=== PATIENT | female | born 1990 | race African-American/Black ===

== ENCOUNTER 2019-10-22 08:54 | Outpatient (CLI) | payer MEDICAID, OTHER ==
[~2019-10-22 08:54] MED LIST: FERRIC CARBOXYMALTOSE 750 MG in NORMAL SALINE 250 ML IV PRN; NORMAL SALINE 250 ML IV PRN
[2019-10-22 09:36] VITALS: BP 139/73
== END 2019-10-22 10:30 | disposition home or self-care (01) ==
LOC: II 08:54 → 5TH 08:59 → II 10:30
PROVIDERS: ATTEND Advanced Practice Midwife
DX: O99.019 Anemia complicating pregnancy, unspecified trimester (principal)
CPT/HCPCS: 96365; J7050; J1439

== ENCOUNTER 2019-10-29 08:53 | Outpatient (CLI) | payer MEDICAID, OTHER ==
[2019-10-29 10:26] VITALS: BP 151/92
== END 2019-10-29 09:41 | disposition home or self-care (01) ==
LOC: II 08:53 → 5TH 09:08 → II 09:41
PROVIDERS: ATTEND Advanced Practice Midwife
DX: O99.019 Anemia complicating pregnancy, unspecified trimester (principal)
CPT/HCPCS: 96365; J7050; J1439

== ENCOUNTER 2019-11-18 02:25 | Inpatient (IN) | payer OTHER ==
[2019-11-18] MEDS ORDERED: RINGERS SOLUTION,LACTATED 1,000 ML IV PRN (02:47)
[2019-11-18] MEDS ORDERED: RINGERS SOLUTION,LACTATED 1,000 ML IV ONE (02:47)
[2019-11-18] MEDS ORDERED: MAGNESIUM SULFATE 20 GM/500 ML RTUINJ IV ONE ×2 (03:11→14:22)
[2019-11-18] MEDS ORDERED: MAGNESIUM SULFATE 4 GM/100 ML RTUPB IV ONE (03:11)
[2019-11-18] MEDS ORDERED: BETAMET ACET/BETAMET NA INJ 6 MG/1 ML ONE (03:11)
[2019-11-18 03:21] LABS: APPEARANCE,URINE CLOUDY; BILIRUBIN,URINE NEGATIVE (NEGATIVE); COLOR,URINE PINK; GLUCOSE, URINE NEGATIVE (NEGATIVE); KETONES,URINE NEGATIVE (NEGATIVE); LEUKOCYTE ESTERASE,URINE SMALL (NEGATIVE); NITRITE,URINE NEGATIVE (NEGATIVE); PROTEIN,URINE 100 mg/dL (NEGATIVE); URINE SPECIFIC GRAVITY 1.009; UROBILINOGEN,URINE NEGATIVE mg/dL (<2.0)
[2019-11-18 03:31] LABS: URINE AMPHETAMINES SCREEN NEGATIVE; URINE BARBITURATES SCREEN NEGATIVE; URINE BENZODIAZEPINES SCREEN NEGATIVE; URINE COCAINE SCREEN NEGATIVE; URINE MARIJUANA (THC) SCREEN NEGATIVE; URINE METHADONE SCREEN NEGATIVE; URINE PHENCYCLIDINE SCREEN NEGATIVE
[2019-11-18 03:36] LABS: ABSOLUTE LYMPHOCYTES (AUTO) 1.5 10^3/uL (0.5-4.7); ABSOLUTE MONOCYTES (AUTO) 0.4 10^3/uL (0.1-1.4); ABSOLUTE NEUT (AUTO) 2.7 10^3/uL (1.7-8.2); BASOPHILS % (AUTO) 0.1 % (0-2); EOSINOPHILS % (AUTO) 0.7 % (0-6); HEMATOCRIT 35.4 % (36.0-47.0); HEMOGLOBIN 11.3 g/dL (12.0-15.5); LYMPHOCYTES % (AUTO) 31.5 % (13-45); MEAN CORPUSCULAR HEMOGLOBIN 24.5 pg (27.0-33.4); MEAN CORPUSCULAR VOLUME 77 fl (80-97); PLATELET COUNT 125 10^3/uL (150-450); RED BLOOD COUNT 4.63 10^6/uL (3.72-5.28); RED CELL DISTRIBUTION WIDTH 39.2 % (11.5-14.0); SEGMENTED NEUTROPHILS % (AUTO) 58.7 % (42-78); TOTAL CELLS COUNTED % (AUTO) 100 %; WHITE BLOOD COUNT 4.7 10^3/uL (4.0-10.5)
[2019-11-18 03:38] LABS: ANISOCYTOSIS 3+; POIKILOCYTOSIS 3+; TOXIC GRANULATION 1+
[2019-11-18 03:39] LABS: BURR CELLS 2+; OVALOCYTES 3+; PLATELET COMMENT ADEQUATE; SCHISTOCYTES 2+; TEAR DROP CELLS 2+
[2019-11-18] MEDS ORDERED: BETAMET ACET/BETAMET NA INJ 6 MG/1 ML IM ONE (03:41)
[2019-11-18] MEDS ORDERED: PENICILLIN G POTASSIUM 5,000,000 UNIT in DEXTROSE 5%-WATER 100 ML IV ONE (04:51)
[2019-11-18] MEDS ORDERED: PENICILLIN G-K 5 MILLION UNIT VIAL ONE ×5 (04:55→22:18)
--- NOTE | 2019-11-18 05:03 | Admission Physical ---
Datetime Report Generated by CPN: 11/18/2019 05:03 CURRENT ADMISSION Chief Complaint: Suspected Ruptured Membranes Indication for Induction: Not Applicable Admit Impression : , Intrauterine ; No Active Labor Admit Impression- Other: di/di twin gestation Admit Plan: Admit to Unit; Initiate Labor Protocol Admit Plan- Other: previous c/section, planned c/section delivery for twins. ALLERGIES Medication Allergies: No Medication Allergies: No Known Allergies (11/18/2019) Latex: No Latex Allergies OBSTETRICAL HISTORY EDC: 12/26/2019 00:00 : 4 Para: 1 Term: 1 : 0 SAB: 0 IAB: 2 Ectopic: 0 Livin Cesareans: 1 VBACs: 0 Multiple Births: 0 Gestational Diabetes: No Rh Sensitization: No Incompetent Cervix: No DARREN: No Infertility: No ART Treatment: No Uterine Anomaly: No IUGR: No Hx Previous C/S: Yes Macrosomia: No Hx Loss/Stillborn: No PIH: No Hx : No Placenta Previa/Abruption: No Depression/PP Depression: No PTL/PROM: No Post Hemorrhage: No Current Procedures: Ultrasound; NST Obstetrical History Comments: G1 2008 IAB G2 2011 IAB G3 2013 failed IOL c/s G4 2019 Current Twins di/di SEE RECORDS Alcohol: No Marijuana : No Cocaine: No Other Illicit Drugs: No Cigarettes: Never Smoker. [id number] MEDICAL HISTORY Diabetes: No Blood Transfusion: No Pulmonary Disease (Asthma, TB): No Breast Disease: No Hypertension: No Start Up Specialist Surgery: No Heart Disease: No Hosp/Surgery: Yes Autoimmune Disorder: No Anesthetic Complications: No Kidney Disease: No Abnormal Pap Smear: No Neuro/Epilepsy: No Psychiatric Disorders: No Other Medical Diseases: No Hepatitis/Liver Disease: No Significant Family History: No Varicosities/Phlebitis: No Trauma/Violence : No Thyroid Dysfunction: No INFECTIOUS HISTORY Gonorrhea: No Genital Herpes: No Chlamydia: No Tuberculosis: No Syphilis: No Hepatitis: No HIV/AIDS Exposure: No Rash or Viral Illness: No HPV: No PHYSICAL EXAM General: Normal HEENT: Normal Neurologic: Normal Thyroid: Normal Heart: Normal Lungs: Normal Breast: Normal Back: Normal Abdomen: Normal Genitourinary Exam: Normal Extremities: Normal DTRs: Normal Pelvic Type: Adequate Vital Signs: Reviewed; Within Normal Limits VAGINAL EXAM Dilatation: 1 Effacement: 50 Station: -3 MEMBRANES Pooling: Positive Membranes: Ruptured Amniotic Fluid Color: Clear FETUS A EGA: 34.4 Monitoring: External US FHR- Baseline: 150 Variability: Moderate 6-25bpm Accelerations: 15X15 Decelerations: None FHR Category: Category I Estimated Weight (gm): 2600 Admit Comment: ACS protocol with magnesium sulfate for neuroprotection initiated. will tocolysis if possible until 24 hours after second dose of ACS and then proceed with repeat c/section. FETUS B Monitoring: External US Variability: Moderate 6-25bpm Accelerations: 15X15 Decelerations: None FHR Category: Category I Estimated Weight (gm): 2500 PLANS FOR LABOR AND DELIVERY Labor and Delivery: None Pain Management: Spinal Feeding Preference: Breast Benefit of Breast Feed Discussed: Yes Circumcision: N/A INFORMED CONSENT Signature: with User ID: [email or web address]
--- NOTE | 2019-11-18 08:46 | L&D Progress Notes ---
PROGRESS NOTES Datetime Report Generated by CPN: 11/18/2019 08:46 PROGRESS NOTE Impression: Reassuring Heart Rate; Premature Rupture of Membranes Plan: Continue Present Management; Tocolysis Vital Signs : Reviewed Comment: Assuming care of patient. Doing well this morning, states feels occassional contraction, but no distress. at 34.4 wks with twins, Previous cesarea section. Now on Magnessium Sulfate infusing, PCN q 4 hours. Betamethasone x 1 dose given. Attending MD today is Dr Parmar, agrees with plan of care. VAGINAL EXAM Dilatation: 1 Effacement: 50 Station: -3 LAST VAGINAL EXAM-NURSING Nursing Exam Dilitation: 1.0 Nursing Exam Effacement: thick Nursing Exam Station: high MEMBRANES Pooling: Positive Membranes: Ruptured Amniotic Fluid Color: Clear FETUS A FHR - Baseline: 130 Monitoring: External US Variability: Moderate 6-25bpm Accelerations: 15X15 Decelerations: None FHR Category: Category I : 34.4 Estimated Weight (gm): 2600 FETUS B FHR - Baseline: 140 Monitoring: External US Variability: Moderate 6-25bpm Accelerations: 15X15 Decelerations: None FHR Category: Category I Gestational Age by US: 34.4 Estimated Weight (gm): 2500 SIGNATURE SIGNATURE: [id number];[id number];[id number] Assignment: Alverto Parmar MD Signature: with User ID: Tasia : with User ID: Tasia
[2019-11-18] MEDS: PENICILLIN G POTASSIUM 2,500,000 UNIT in DEXTROSE 5%-WATER 50 ML IV SCH ×4 (10:15→22:27)
[2019-11-18 10:57] LABS: ABSOLUTE LYMPHOCYTES (AUTO) 0.5 10^3/uL (0.5-4.7); ABSOLUTE MONOCYTES (AUTO) 0.1 10^3/uL (0.1-1.4); ABSOLUTE NEUT (AUTO) 6.1 10^3/uL (1.7-8.2); BASOPHILS % (AUTO) 0.2 % (0-2); HEMATOCRIT 36.9 % (36.0-47.0); HEMOGLOBIN 11.9 g/dL (12.0-15.5); LYMPHOCYTES % (AUTO) 7.9 % (13-45); MEAN CORPUSCULAR HGB CONC 32.3 g/dL (32.0-36.0); MEAN CORPUSCULAR VOLUME 77 fl (80-97); MONOCYTES % (AUTO) 2.1 % (3-13); RED BLOOD COUNT 4.78 10^6/uL (3.72-5.28); RED CELL DISTRIBUTION WIDTH 39.4 % (11.5-14.0); SEGMENTED NEUTROPHILS % (AUTO) 89.8 % (42-78); TOTAL CELLS COUNTED % (AUTO) 100 %; WHITE BLOOD COUNT 6.8 10^3/uL (4.0-10.5)
[2019-11-18 11:12] LABS: ALBUMIN 3.6 g/dL (3.5-5.0); ALKALINE PHOSPHATASE 177 U/L (38-126); ANION GAP 9 (5-19); ASPARTATE AMINO TRANSFERASE 49 U/L (14-36); BILIRUBIN,TOTAL 0.5 mg/dL (0.2-1.3); BLOOD UREA NITROGEN 7 mg/dL (7-20); CALCIUM 8.5 mg/dL (8.4-10.2); CARBON DIOXIDE 20 mmol/L (22-30); CHLORIDE 105 mmol/L (98-107); GLUCOSE 92 mg/dL (75-110); POTASSIUM 4.4 mmol/L (3.6-5.0); TOTAL PROTEIN 6.9 g/dL (6.3-8.2); URIC ACID 5.1 mg/dL (2.5-6.2)
[2019-11-18 11:34] LABS: POLYCHROMASIA SLIGHT
[2019-11-18 11:35] LABS: ANISOCYTOSIS 4+; BURR CELLS SLIGHT; OVALOCYTES 1+; PLATELET CLUMPS PRESENT; PLATELET COMMENT DECREASED; PLATELET COUNT 132 10^3/uL (150-450); POIKILOCYTOSIS 2+; TEAR DROP CELLS 2+
[2019-11-18 12:05] LABS: URINE CREATININE 15.4 mg/dL (16-327)
[2019-11-18 12:16] LABS: URINE PROTEIN 323.2 mg/dL (<12)
--- NOTE | 2019-11-18 13:22 | L&D Progress Notes ---
PROGRESS NOTES Datetime Report Generated by CPN: 11/18/2019 13:22 PROGRESS NOTE Impression: Reassuring Heart Rate Plan: Continue Present Management; Tocolysis Plan Other: PROM at 0145 on 11/17, PCN q 4 hours, pt on Magnessium Sulfate. Vital Signs : Reviewed Comment: Pt doing well, no complaints of SOB, Epigastric pain or headache. Lungs CTA, HR rrr. Pt states she normally runs a fast HR. Normal O2 sats on room air. CBC and CMP reviewed. LFT's slightly elevated and Platelets remain stable. Will Repeat labwork at 2200. Dr Parmar aware of pts labs and tachycardia. Plan to continue PCN q 4 hours. Will turn off the Magnesium Sulfate at 0330, once second BMZ is given. VAGINAL EXAM Dilatation: 1 Effacement: 50 Station: -3 LAST VAGINAL EXAM-NURSING Nursing Exam Dilitation: 1.0 Nursing Exam Effacement: thick Nursing Exam Station: high MEMBRANES Pooling: Positive Membranes: Ruptured Amniotic Fluid Color: Clear FETUS A FHR - Baseline: 130 Monitoring: External US Variability: Moderate 6-25bpm Accelerations: 15X15 Decelerations: None FHR Category: Category I : 34.4 Estimated Weight (gm): 2600 FETUS B FHR - Baseline: 140 Monitoring: External US Variability: Moderate 6-25bpm Accelerations: 15X15 Decelerations: None FHR Category: Category I Gestational Age by US: 34.4 Estimated Weight (gm): 2500 SIGNATURE SIGNATURE: [id number];[id number] Assignment: Alverto Parmar MD Signature: with User ID: Tasia : with User ID: Tasia
[2019-11-18] MEDS ORDERED: LABETALOL HCL 200 MG TABLET PO ONE (14:16)
[2019-11-18] MEDS ORDERED: LABETALOL HCL 200 MG TABLET ONE ×2 (14:20→22:17)
--- NOTE | 2019-11-18 19:38 | EKG REPORT ---
SEVERITY:- OTHERWISE NORMAL ECG - SINUS TACHYCARDIA : Confirmed by: Carley Sampson 18-Nov-2019 19:37:37
[2019-11-18 22:22] LABS: HEMOGLOBIN 11.2 g/dL (12.0-15.5); MEAN CORPUSCULAR HEMOGLOBIN 24.7 pg (27.0-33.4); MEAN CORPUSCULAR HGB CONC 32.1 g/dL (32.0-36.0); MEAN CORPUSCULAR VOLUME 77 fl (80-97); PLATELET COUNT 148 10^3/uL (150-450); RED BLOOD COUNT 4.55 10^6/uL (3.72-5.28); RED CELL DISTRIBUTION WIDTH 39.5 % (11.5-14.0); WHITE BLOOD COUNT 9.7 10^3/uL (4.0-10.5)
[2019-11-18] MEDS: LABETALOL HCL 200 MG TABLET PO SCH (22:26)
[2019-11-18 22:35] LABS: ALBUMIN 3.3 g/dL (3.5-5.0); ALKALINE PHOSPHATASE 163 U/L (38-126); ANION GAP 9 (5-19); ASPARTATE AMINO TRANSFERASE 46 U/L (14-36); BILIRUBIN,TOTAL 0.5 mg/dL (0.2-1.3); BLOOD UREA NITROGEN 6 mg/dL (7-20); CALCIUM 7.9 mg/dL (8.4-10.2); CARBON DIOXIDE 19 mmol/L (22-30); CHLORIDE 103 mmol/L (98-107); GLUCOSE 121 mg/dL (75-110); POTASSIUM 4.1 mmol/L (3.6-5.0)
[2019-11-19] MEDS ORDERED: MAGNESIUM SULFATE 20 GM/500 ML RTUINJ IV ONE (01:06)
[2019-11-19] MEDS ORDERED: PENICILLIN G-K 5 MILLION UNIT VIAL ONE ×6 (02:27→23:22)
[2019-11-19] MEDS ORDERED: BETAMET ACET/BETAMET NA INJ 6 MG/1 ML ONE (02:28)
[2019-11-19] MEDS: PENICILLIN G POTASSIUM 2,500,000 UNIT in DEXTROSE 5%-WATER 50 ML IV SCH ×6 (02:39→23:34)
[2019-11-19] MEDS ORDERED: BETAMET ACET/BETAMET NA INJ 6 MG/1 ML IM ONE (02:52)
[2019-11-19] MEDS: LABETALOL HCL 200 MG TABLET PO SCH ×2 (11:20→23:36)
[2019-11-19] MEDS ORDERED: LABETALOL HCL 200 MG TABLET ONE ×2 (11:22→23:22)
[2019-11-19 12:05] LABS: CHLAM PCR NOT DETECTED (NOT DETECT)
--- NOTE | 2019-11-19 12:48 | Warning Signs in Babies ---
VOD Warning Signs Datetime Report Generated by [facility]: 11/19/2019 12:48 VOD#608 -Warning Signs in Babies: Viewed with Parent(s)/Family (11/19/2019 12:47:Robert Rosa RN)
[2019-11-20] MEDS ORDERED: PENICILLIN G-K 5 MILLION UNIT VIAL ONE (03:13)
[2019-11-20] MEDS ORDERED: CEFAZOLIN 2 GM/D5W RTU 2 GM/50 ML RTUPB IV ONE (04:27)
[2019-11-20] MEDS ORDERED: CITRIC ACID/SODIUM CITRATE ORAL SOLN 15 ML UDCUP ONE (04:27)
[2019-11-20] MEDS ORDERED: MIDAZOLAM 2 MG/2 ML INJ ONE (04:41)
[2019-11-20] MEDS ORDERED: PHENYLEPHRINE HCL INJ/PF 10 MG/1 ML SDV ONE (04:41)
[2019-11-20] MEDS ORDERED: EPHEDRINE SULFATE INJ 50 MG/1 ML AMPULE ONE (04:41)
[2019-11-20] MEDS ORDERED: OXYTOCIN 10 UNIT/ML VIAL ONE (04:41)
[2019-11-20] MEDS ORDERED: FENTANYL CITRATE INJ/PF 100 MCG/2 ML AMPUL ONE (04:41)
[2019-11-20 04:42] LABS: ABSOLUTE LYMPHOCYTES (AUTO) 1.3 10^3/uL (0.5-4.7); ABSOLUTE MONOCYTES (AUTO) 0.9 10^3/uL (0.1-1.4); ABSOLUTE NEUT (AUTO) 9.7 10^3/uL (1.7-8.2); BASOPHILS % (AUTO) 0.2 % (0-2); EOSINOPHILS % (AUTO) 0.1 % (0-6); HEMATOCRIT 33.7 % (36.0-47.0); HEMOGLOBIN 10.7 g/dL (12.0-15.5); LYMPHOCYTES % (AUTO) 10.9 % (13-45); MEAN CORPUSCULAR HEMOGLOBIN 24.6 pg (27.0-33.4); MEAN CORPUSCULAR HGB CONC 31.9 g/dL (32.0-36.0); MEAN CORPUSCULAR VOLUME 77 fl (80-97); MONOCYTES % (AUTO) 7.7 % (3-13); PLATELET COUNT 139 10^3/uL (150-450); RED BLOOD COUNT 4.37 10^6/uL (3.72-5.28); RED CELL DISTRIBUTION WIDTH 38.5 % (11.5-14.0); SEGMENTED NEUTROPHILS % (AUTO) 81.1 % (42-78); TOTAL CELLS COUNTED % (AUTO) 100 %
[2019-11-20] MEDS ORDERED: ONDANSETRON HCL INJ/PF 4 MG/2 ML SDV ONE (04:42)
[2019-11-20] MEDS ORDERED: ACETAMINOPHEN 1,000 MG/100 ML RTUPB IV ONE (04:42)
[2019-11-20] MEDS ORDERED: METHYLERGONOVINE MALEATE INJ/PF 0.2 MG/1 ML AMPULE ONE (04:42)
[2019-11-20 05:13] LABS: ANISOCYTOSIS 4+; HYPOCHROMASIA SLIGHT; OVALOCYTES SLIGHT; PLATELET COMMENT DECREASED; POIKILOCYTOSIS SLIGHT; POLYCHROMASIA SLIGHT; TEAR DROP CELLS SLIGHT; TOXIC GRANULATION 1+
--- NOTE | 2019-11-20 05:39 | PDOC DELIVERY SUMMARY ---
Delivery Summary - Maternal Risk Factors: Other Ruptured Membranes: AROM Fluids: Clear - Delivery Presentation: Vertex, Breech Uterine Contraction Monitoring: External Pattern: Late Decels Support Person Present: Yes : Emergency Nuchal Cord: No - Medications Type of Anesthesia:: Spinal
[2019-11-20] MEDS ORDERED: OXYTOCIN/0.9 % SODIUM CHLORIDE 30 UNIT/500 ML RTUINJ IV PRN (05:43)
[2019-11-20] MEDS ORDERED: MEASLES,MUMPS&RUBELLA VACC/PF 0.5 ML VIAL SUBCUT PRN (05:43)
[2019-11-20] MEDS ORDERED: SIMETHICONE 80 MG TAB.CHEW PO PRN (05:43)
[2019-11-20] MEDS ORDERED: PROMETHAZINE HCL INJ 25 MG/1 ML VIAL IV PRN ×3 (05:43→05:44)
[2019-11-20] MEDS ORDERED: ACETAMINOPHEN 1,000 MG/100 ML RTUPB IV PRN (05:43)
[2019-11-20] MEDS ORDERED: MORPHINE SULFATE 10 MG/ML INJ IM PRN (05:43)
[2019-11-20] MEDS ORDERED: ACETAMINOPHEN 325 MG TABLET PO PRN (05:43)
[2019-11-20] MEDS ORDERED: DIPH/PERTUSS(ACELL)/TETANUS VAC/PF 0.5 ML SYR (>=10YO) IM PRN (05:43)
[2019-11-20] MEDS ORDERED: RINGERS SOLUTION,LACTATED 1,000 ML IV PRN (05:43)
--- NOTE | 2019-11-20 05:43 | Operative Report ---
Operative Report DATE OF SURGERY: 11/20/19 PREOPERATIVE DIAGNOSIS: IUP 35 and 4 twins rupture membranes nonreassur ing strip breech vertex POSTOPERATIVE DIAGNOSIS: Same OPERATION: Repeat low transverse delivery of viable twin female SURGEON: DANIEL BYRNES ANESTHESIA: Spinal TISSUE REMOVED OR ALTERED: Placenta COMPLICATIONS: None ESTIMATED BLOOD LOSS: 1200 cc PROCEDURE: The patient was taken to the operating room where spinal anesthesia was obtained and found to be adequate. She was then prepped and draped in the normal sterile fashion and placed in the dorsal supine position with a leftward tilt. A Pfannenstiel skin incision was then made and carried through to the underlying layers of the fascia with the scalpel. The fascia was incised in the midline and the incision extended laterally with the Cadet scissors. The superior aspect of the fascial incision was then grasped with Marylu clamps elevated and the underlying rectus muscles dissected off bluntly. Attention was then turned to the inferior aspect of the fascial incision which in a similar fashion was grasped, tented up with Jose clamps, and the rectus muscles dissected off bluntly. The rectus muscles were then in the midline and the peritoneum at the amount identified and entered bluntly. The peritoneal incision was then extended superiorly and inferiorly with good visualization of the bladder. [The bladder blade was inserted and the vesicouterine peritoneum identified grasped with Egyptian pickups and entered sharply with the Metzenbaum scissors. His incision was then extended laterally with the Metzenbaum scissors and a bladder flap created digitally. The bladder blade was then reinserted a nd the lower uterine segment incised in a transverse fashion with the scalpel. The uterine incision was then extended bluntly. The bladder blade was removed and the infant's head was delivered from breech presentation atraumatically. Cord was clamped and infant passed in a table. Second twin was delivered vertex. The cord doubly clamped and cut. And the infant was handed off to waiting pediatricians. The placenta was then delivered manully and the uterus exteriorized and cleared of all clots and debris. The uterine incision was then repaired with 1-0 Vicryl in a running locked fashion. A second layer of the same suture was used to obtain hemostasis via imbrication of the initial layer. The uterus was returned to the patient's abdomen. The gutters were cleared of all clots and debris. All operative sites were noted to be hemostatic. The fascia was reapproximated with 0 Vicryl in a running fashion from each lateral edge to the midline. The patient tolerated the procedure well. Sponge lap needle and instrument counts are correct -2. 2 g of Ancef were given prior to skin incision. The patient was taken to the recovery area awake and in stable condition.
[2019-11-20] MEDS ORDERED: MORPHINE SULFATE 10 MG/ML INJ IV PRN (05:44)
[2019-11-20] MEDS ORDERED: ONDANSETRON HCL INJ/PF 4 MG/2 ML SDV IV PRN (05:44)
[2019-11-20] MEDS ORDERED: FENTANYL CITRATE INJ/PF 100 MCG/2 ML AMPUL IV PRN ×3 (05:44)
[2019-11-20] MEDS ORDERED: DIPHENHYDRAMINE HCL 50 MG/ML VIAL IV PRN (05:44)
[2019-11-20] MEDS ORDERED: OXYCODONE-ACETAMINOPHEN 5-325 MG TABLET PO PRN ×2 (05:44)
[2019-11-20] MEDS ORDERED: MEPERIDINE HCL/PF INJ 25 MG/1 ML DISP.SYRIN IV PRN (05:44)
[2019-11-20] MEDS ORDERED: MEPERIDINE HCL/PF INJ 25 MG/1 ML DISP.SYRIN ONE (06:05)
[2019-11-20] MEDS ORDERED: MORPHINE SULFATE 10 MG/ML INJ ONE ×2 (06:37→07:16)
[2019-11-20] MEDS: PENICILLIN G POTASSIUM 2,500,000 UNIT in DEXTROSE 5%-WATER 50 ML IV SCH ×2 (07:11→07:14)
[2019-11-20] MEDS ORDERED: KETOROLAC TROMETHAMINE INJ/PF 30 MG/1 ML SDV ONE (07:16)
[2019-11-20] MEDS: KETOROLAC TROMETHAMINE INJ/PF 30 MG/1 ML SDV IV SCH ×3 (07:17→21:05)
--- NOTE | 2019-11-20 09:42 | Birth Certificate Data ---
Cert Data Datetime Report Generated by [facility]: 11/20/2019 09:41 CERTIFICATE DATA 47a. Care: Yes (11/15/2019 03:55:Kacy López RN) 47b. Date of First Visit: 05/27/2019 00:00 (11/15/2019 03:55:RYAN Velasquez) 47c. Date of Last Visit: 10/21/2019 00:00 (11/15/2019 03:55:RYAN Velasquez) 47d. Number of Visits: 8 (11/15/2019 03:55:RYAN Velasquez) 48a. Number of Prev Live Births: 1 (11/15/2019 03:55:Kacy López RN) 48b. Now Livin (11/15/2019 03:55:Delilah Cedeno RN) 48c. Live Births Now : 0 (11/15/2019 03:55:QS system process) 48e. Losses: 2 (11/15/2019 03:55:Kacy López RN) 48f. Date of Last Preg Loss: 10/31/2010 00:00 (11/15/2019 03:55:Kacy López RN) RISK FACTORS IN THIS 49a. Diabetes: No (11/15/2019 03:55:Kacy López RN) 49b. Hypertension: No (11/15/2019 03:55:Kacy López RN) Type of Hypertension: Gestational (PIH, Pre-eclampsia) (11/15/2019 03:55:Kacy López RN) 49c. Previous Births: 0 (11/15/2019 03:55:Kacy López RN) 49d. Stillborns: No (11/15/2019 03:55:Kacy López RN) 49d. IUGR: No (11/15/2019 03:55:Kacy López RN) 49e. Infertility Treatment: No (11/15/2019 03:55:Kacy López RN) 49f. Previous Cesareans: 1 (11/15/2019 03:55:Delilah Cedeno RN) Mother's Height 50b. Height Inches: 65 (11/15/2019 03:08:QS system process) Mother's Weight 51a. Pre- Weight: 258 (11/15/2019 03:55:RYAN Velasquez) 51b. Weight at Time of Delivery: 286 (11/20/2019 09:26:QS system process) Infections Present/Treated 53a. Gonorrhea: No (11/15/2019 03:55:Kacy López RN) Results this Hospital Visit : Negative (11/15/2019 03:55:RYAN Velasquez) 53b. Syphilis: No (11/15/2019 03:55:Kacy López RN) Results this Hospital Visit: NONREACTIVE (11/18/2019 02:57:QS system process) 53c. Chlamydia: No (11/15/2019 03:55:Kacy López RN) Results this Hospital Visit: Negative (11/15/2019 03:55:RYAN Velasquez) 53d. Hepatitis B: No (11/15/2019 03:55:Kacy López RN) Results this Hospital Visit: Negative (11/15/2019 03:55:Kacy López RN) 53e. Hepatitis C: Negative (11/15/2019 03:55:RYAN Velasquez) 53i. Date Tested: 05/27/2019 00:00 (11/15/2019 03:55:RYAN Velasquez) Obstetric Procedures 54a, b, c. Obstetric Procedures: Ultrasound; NST (11/15/2019 03:55:Kacy Lóepz RN) Onset of Labor 56a. PROM >12 Hrs: 51.48 (11/18/2019 03:10:QS system process) 57a. Induction of Labor: N/A (11/15/2019 03:55:Delilah Cedeno RN) 57d. Steroids - Lung Mat: Full Course; > 24 Hours before Delivery (11/15/2019 03:55:Delilah Cedeno RN) 57d. Steroids - Lung Mat: Celestone 12mg IM - Dose 2 (11/19/2019 02:36:Kacy López RN) 57d. Steroids - Lung Mat: Not Applicable (11/15/2019 03:55:Delilah Cedeno RN) 57e. Antibiotics During Labor: 11/20/2019 03:45 (11/15/2019 03:55:Delilah Cedeno RN) 57f. Mat [place] or Temp >100.4: 99.2 (11/15/2019 03:55:Jarred Dailey RN) 57g. Moderate/Heavy Meconium: Clear (11/18/2019 03:10:Kacy López RN) 57h. Intolerance of Labor: Repeat Elective (11/15/2019 03:55:Delilah Cedeno RN) : N/A (11/15/2019 03:55:Robert Rosa RN) 57i. Epidural/Spinal Anesthesia: None (11/15/2019 03:55:Delilah Cedeno RN) Method of Delivery 58a. Forceps - Unsuccessful A: N/A (11/15/2019 03:55:Delilah Cedeno RN) 58a. Forceps - Unsuccessful B: N/A (11/15/2019 03:55:Delilah Cedeno RN) 58b. Vacuum - Unsuccessful A: N/A (11/15/2019 03:55:Delilah Cedeno RN) 58b. Vacuum - Unsuccessful B : N/A (11/15/2019 03:55:Delilah Cedeno RN) 58c. Presentation at 58c. Presentation at - A : Breech (11/15/2019 03:55:YOLANDA Marte) Final Route and Method of Del 58d. Baby A Route/Delivery: (11/15/2019 03:55:YOLANDA Marte) 58d. Baby B Route/Delivery: (11/15/2019 03:55:YOLANDA Marte) 58e. Trial of Labor Attempted: No (11/15/2019 03:55:Delilah Cedeno RN) 58e. Trial of Labor Attempted A: N/A (11/15/2019 03:55:Delilah Cedeno RN) 58e. Trial of Labor Attempted B: N/A (11/15/2019 03:55:Delilah Cedeno, RN) Maternal Morbidity 59b. 3rd or 4th Degree Lacs: None (11/15/2019 03:55:Robert Rosa, RN) Birthweight Baby A: 2412 (11/15/2019 03:55:YOLANDA Marte) 60a. Pounds : 5 (11/15/2019 03:55:QS system process) 60b. Ounces: 5 (11/15/2019 03:55:QS system process) Birthweight Baby B 60a. Pounds: 3 (11/15/2019 03:55:QS system process) 60b. Ounces: 12 (11/15/2019 03:55:QS system process) 61. GA at Delivery Baby A: 34.6 (11/15/2019 03:55:Delilah Cedeno RN) : Late - 34- 36.6 Weeks (11/15/2019 03:55:QS system process) Baby B: 34.6 (11/15/2019 03:55:Delilah Cedeno RN) : Late - 34- 36.6 Weeks (11/15/2019 03:55:QS system process) 62a. 5 Minute Baby A: 9 (11/15/2019 03:55:QS system process) Baby B: 9 (11/15/2019 03:55:QS system process)
--- NOTE | 2019-11-20 09:42 | Delivery Summary ---
Del Sum A-C Datetime Report Generated by CPN: 11/20/2019 09:41 DELIVERY PERSONNEL DELIVERY PERSONNEL: [id number] Delivery Doctor:: Alverto Parmar MD BINDER CUTTER:: Kenia Casas CRNA Axle Polisher:: Delilah Cedeno, RN Box Feeder/INSOLE DOUBLER: Deandre Presley, CREDIT INTERN Additional Personnel: : Dee Mccord, RN MATERNAL INFORMATION Delivery Anesthesia: Spinal Medications After Delivery: Pitocin 30 Units in 500ml NS/D5W Delivery QBL: 1010 Maternal Complications: Premature Rupture of Membranes LABOR SUMMARY EDC: 12/26/2019 00:00 No. Babies in Womb: 2 Attempted: No Labor Anesthesia: None LABOR INFORMATION Reason for Induction: Not Applicable Oxytocin: N/A Group B Beta Strep: unknown Antibiotics # of Doses: 11 Antibiotics Time of Last Dose: 11/20/2019 03:45 Name of Antibiotic Given: penicillin G Steroids Given: Full Course; > 24 Hours before Delivery Reason Steroids Not Administered: Not Applicable MEMBRANES Membranes Rupture Method: Spontaneous Rupture of Membranes: 11/18/2019 01:45 Length of Rupture (hr): 51.48 Amniotic Fluid Color: Clear Amniotic Fluid Amount: Small Amniotic Fluid Odor: Normal STAGES OF LABOR Stage 3 hr: 0 Stage 3 min: 2 VAGINAL DELIVERY Episiotomy: None Laceration #1: None Laceration Extension #1: N/A Laceration Repair: Not Applicable Sponge Count Correct: N/A Sharps Count Correct: N/A CSECTION DELIVERY Primary Indication: Repeat Elective Secondary Indication: N/A CSection Urgency: Non-Scheduled CSection Incidence: Repeat Labor: Labor Elective: Nonelective CSection Incision: Lower Uterine Transverse BABY A INFORMATION Infant Delivery Date/Time: 11/20/2019 05:14 Method of Delivery: Nurse Controlled Delivery: No Born in Route : No : N/A Forceps: N/A Vacuum Extraction: N/A Shoulder Dystocia : No PRESENTATION/POSITION BABY A Presentation: Breech PLACENTA INFORMATION BABY A Placenta Delivery Time : 11/20/2019 05:16 Placenta Method of Delivery: Manual Removal Placenta Status: Delivered SCORES BABY A Heart Rate 1 min: >100 bpm Resp Effort 1 min: Good Cry Reflex Irritability 1 min: Cough or Sneeze or Pulls Away Muscle Tone 1 min: Active Motion Color 1 min: Blue/Pale Resuscitation Effort 1 min: Tactile Stimulation SCORE 1 MIN: 8 Heart Rate 5 min: >100 bpm Resp Effort 5 min: Good Cry Reflex Irritability 5 min: Cough or Sneeze or Pulls Away Muscle Tone 5 min: Active Motion Color 5 min: Body [place], Extremities Blue SCORE 5 MIN: 9 INFORMATION BABY A Gestational Age at Delivery: 34.6 Gestational Status: Late - 34- 36.6 Weeks Infant Outcome : Liveborn Condition : Stable Infant Sex: Female IDENTIFICATION BABY A Verification Date/Time: 11/20/2019 05:17 ID Band Number: [id number] Mother's Name Verified: Yes WEIGHT/LENGTH BABY A Infant Birthweight (gm): 2412 Infant Weight (lb): 5 Infant Weight (oz): 5 Infant Length (in): 19.00 Length (cm): 48.26 CORD INFORMATION BABY A No. Cord Vessels: 3 Nuchal Cord : N/A Cord Blood Taken: Yes-For Storage (Mom's Blood type +) Infant Suction: None ASSESSMENT BABY A Infant Complications: None Physical Findings at Delivery: Other Physical Findings- Other: see initial nursery note Skin to Skin: No Transferred To: NICU BABY B INFORMATION Delivery Date/Time: 11/20/2019 05:15 Method of Delivery : Nurse Controlled Delivery: No Born in Route : No : N/A Forceps : N/A Vacuum Extraction: N/A Shoulder Dystocia : No SHOULDER DYSTOCIA BABY B Infant Delivery Date/Time: 11/20/2019 05:15 ROM/PLACENTA INFO BABY B Rupture of Membranes: 11/18/2019 01:45 Length of Rupture (hr): 51.50 Placenta Delivery Time : 11/20/2019 05:16 SCORES BABY B Heart Rate 1 min: >100 bpm Resp Effort 1 min: Good Cry Reflex Irritability 1 min: Cough or Sneeze or Pulls Away Muscle Tone 1 min: Active Motion Color 1 min: Body [place], Extremities Blue Resuscitation Effort 1 min: Tactile Stimulation SCORE 1 MIN: 9 Heart Rate 5 min: >100 bpm Resp Effort 5 min: Good Cry Reflex Irritability 5 min: Cough or Sneeze or Pulls Away Muscle Tone 5 min: Active Motion Color 5 min: Body [place], Extremities Blue SCORE 5 MIN: 9 INFORMATION BABY B Gestational Age at Delivery: 34.6 Gestational Status : Late - 34- 36.6 Weeks Outcome : Liveborn Infant Condition : Stable Infant Sex : Female IDENTIFICATION BABY B Verification Date/Time: 11/20/2019 05:17 ID Band Number : [id number] Mother's Name Verified: Yes Infant RN Verifying Infant: Delmer Cedeno, RN and S. Mccord, RN WEIGHT/LENGTH BABY B Infant Birthweight (gm): 1708 Infant Weight (lb) : 3 Infant Weight (oz): 12 Length (in): 16.50 Length (cm): 41.91 CORD INFORMATION BABY B No. Cord Vessels : 3 Nuchal Cord : N/A Cord Blood Taken : Yes-For Eval (Mom's Blood Type -) Suction : None ASSESSMENT BABY B Infant Complications : Decreased Variability; Multiple Late Decels; Multiple Variable Decels Physical Findings at Delivery: Other Physical Findings- Other : see initial nursery note Skin to Skin: No Transfer To: NICU
[2019-11-20] MEDS ORDERED: PRENATAL VITAMIN W DHA CAPSULE PO SCH (10:00)
[2019-11-20] MEDS: DOCUSATE SODIUM 100 MG CAPSULE PO SCH ×2 (10:04→18:45)
[2019-11-20] MEDS: FERROUS SULFATE 325 MG TABLET PO SCH (10:04)
[2019-11-20] MEDS: OXYCODONE-ACETAMINOPHEN 5-325 MG TABLET PO PRN ×4 (10:05→23:13)
[2019-11-20] MEDS: LABETALOL HCL 200 MG TABLET PO SCH ×2 (10:34→21:05)
[2019-11-20] MEDS: PRENATAL VITAMIN W DHA CAPSULE PO SCH (10:50)
[2019-11-21] MEDS: OXYCODONE-ACETAMINOPHEN 5-325 MG TABLET PO PRN ×5 (03:25→23:17)
[2019-11-21] MEDS: IBUPROFEN 800 MG TABLET PO SCH ×4 (05:37→23:18)
[2019-11-21 05:40] LABS: HEMOGLOBIN 9.7 g/dL (12.0-15.5); MEAN CORPUSCULAR HEMOGLOBIN 25.2 pg (27.0-33.4); MEAN CORPUSCULAR HGB CONC 32.2 g/dL (32.0-36.0); MEAN CORPUSCULAR VOLUME 78 fl (80-97); PLATELET COUNT 115 10^3/uL (150-450); RED BLOOD COUNT 3.83 10^6/uL (3.72-5.28); RED CELL DISTRIBUTION WIDTH 38.8 % (11.5-14.0); WHITE BLOOD COUNT 11.4 10^3/uL (4.0-10.5)
[2019-11-21] MEDS: FERROUS SULFATE 325 MG TABLET PO SCH (09:27)
[2019-11-21] MEDS: DOCUSATE SODIUM 100 MG CAPSULE PO SCH ×2 (09:27→17:53)
[2019-11-21] MEDS: LABETALOL HCL 200 MG TABLET PO SCH ×2 (09:27→21:49)
[2019-11-21] MEDS: PRENATAL VITAMIN W DHA CAPSULE PO SCH (09:27)
--- NOTE | 2019-11-21 10:19 | PDOC PROGRESS REPORT ---
Subjective-OB Progress Note for:: 11/21/19 Subjective: Doing well, feeling better, + gas, no BM, eating well, voiding, hsb at , one baby at [facility] for bowel obstruction, other baby here doing well Physical Exam (OB) Vital Signs: Temp Pulse Resp BP Pulse Ox 98.8 F 112 H 18 147/85 H 97 11/21/19 08:47 11/21/19 07:37 11/21/19 07:37 11/21/19 07:37 11/21/19 07:37 Intake & Output 11/20/19 11/21/19 11/22/19 06:59 06:59 06:59 Intake Total 1320 Output Total 1370 Balance -50 - PIH/Pre-Eclampsia DTR's: 1 + Clonus: Negative Headache: Absent Epigastric Pain: No Visual Changes: No - Dressing Removed: Yes Incision: Dressing - Maternal Morbidity 59. Maternal Morbidity (serious complications experinced by the mother associated with labor and delivery: None of the above - Lochia Lochia Amount: Small 10-25 ml Lochia Color: Rubra/Red - Abdomen Description: Soft, Round Hernia Present: No Fundal Description: Firm, Midline Fundal Height: u/u - u/2 Objective-Diagnostic Laboratory: 11/21/19 04:49 11/18/19 22:08 11/21/19 04:49 WBC 11.4 H RBC 3.83 Hgb 9.7 L Hct 30.0 L MCV 78 L MCH 25.2 L MCHC 32.2 RDW 38.8 H Plt Count 115 L 11/19/19 09:45 Vaginal/Anorectal Group B Streptococcus Culture - Final NO GROUP B STREPTOCOCCUS RECOVERED Assessment and Plan(PN) - Assessment and Plan (1) Previous section Is this a current diagnosis for this admission?: Yes (2) Twin gestation in third trimester Qualifiers: Multiple gestation type: unspecified Qualified Code(s): O30.003 - Twin , unspecified number of placenta and unspecified number of amniotic sacs, third trimester Is this a current diagnosis for this admission?: Yes (3) PROM (premature rupture of membranes) Qualifiers: PROM onset of labor timing: onset of labor within 24 hours of rupture PROM gestational age: -third trimester Qualified Code(s): O42.013 - premature rupture of membranes, onset of labor within 24 hours of rupture, third trimester Is this a current diagnosis for this admission?: Yes (4) 34 weeks gestation of Is this a current diagnosis for this admission?: Yes (5) Delivery by emergency caesarean section Is this a current diagnosis for this admission?: Yes (6) Qualifiers: Weeks of gestation: 35 weeks Qualified Code(s): Z3A.35 - 35 weeks gestation of Is this a current diagnosis for this admission?: Yes - Time Spent with Patient Time with patient: Less than 15 minutes Medications reviewed and adjusted accordingly: Yes - Disposition Anticipated Discharge Disposition: Home, Self Care Anticipated Discharge Timeframe: within 24 hours
[2019-11-21] MEDS: PENICILLIN G POTASSIUM 2,500,000 UNIT in DEXTROSE 5%-WATER 50 ML IV SCH (19:49)
[2019-11-22] MEDS: OXYCODONE-ACETAMINOPHEN 5-325 MG TABLET PO PRN ×2 (03:32→07:50)
[2019-11-22] MEDS: IBUPROFEN 800 MG TABLET PO SCH ×2 (06:31→11:10)
--- NOTE | 2019-11-22 09:25 | PDOC PROGRESS REPORT ---
Subjective-OB Progress Note for:: 11/22/19 Subjective: Feeling alot better today, ready to go home, baby had [facility] had surgery and doing well, pain under control, eating and drinking well, voiding, passing gas Physical Exam (OB) Vital Signs: Temp Pulse Resp BP Pulse Ox 98.3 F 87 18 138/82 H 100 11/22/19 07:30 11/22/19 07:17 11/22/19 07:17 11/22/19 07:17 11/22/19 07:17 Intake & Output 11/21/19 11/22/19 11/23/19 06:59 06:59 06:59 Intake Total 1320 Output Total 1370 Balance -50 - PIH/Pre-Eclampsia DTR's: 2 + Clonus: Negative Headache: Absent Epigastric Pain: No Visual Changes: No - Dressing Removed: No Incision: Dressing Closure Type: Opsite - Maternal Morbidity 59. Maternal Morbidity (serious complications experinced by the mother assoc iated with labor and delivery: None of the above - Lochia Lochia Amount: Scant < 10 ml Lochia Color: Rubra/Red - Abdomen Description: Soft Hernia Present: No Fundal Description: Firm, Midline Fundal Height: u/u - u/2 Objective-Diagnostic Laboratory: 11/21/19 04:49 11/18/19 22:08 11/19/19 09:45 Vaginal/Anorectal Group B Streptococcus Culture - Final NO GROUP B STREPTOCOCCUS RECOVERED Assessment and Plan(PN) - Assessment and Plan (1) Previous section Is this a current diagnosis for this admission?: Yes (2) Twin gestation in third trimester Qualifiers: Multiple gestation type: unspecified Qualified Code(s): O30.003 - Twin , unspecified number of placenta and unspecified number of amniotic sa cs, third trimester Is this a current diagnosis for this admission?: Yes (3) PROM (premature rupture of membranes) Qualifiers: PROM onset of labor timing: onset of labor within 24 hours of rupture PROM gestational age: -third trimester Qualified Code(s): O42.013 - premature rupture of membranes, onset of labor within 24 hours of rupture, third trimester Is this a current diagnosis for this admission?: Yes (4) 34 weeks gestation of Is this a current diagnosis for this admission?: Yes (5) Qualifiers: Weeks of gestation: 35 weeks Qualified Code(s): Z3A.35 - 35 weeks gestation of Is this a current diagnosis for this admission?: Yes - Time Spent with Patient Time with patient: Less than 15 minutes Medications reviewed and adjusted accordingly: Yes - Disposition Anticipated Discharge Disposition: Home, Self Care Anticipated Discharge Timeframe: within 24 hours - home today
--- NOTE | 2019-11-22 09:29 | PDOC DISCHARGE SUMMARY ---
Impression - Admit/DC Date/PCP Admission Date/Primary Care Provider: 11/18/19 02:38 DOLLY MORALES MD Discharge Date: 11/22/19 - Discharge Diagnosis (1) Previous section Is this a current diagnosis for this admission?: Yes (2) Twin gestation in third trimester Is this a current diagnosis for this admission?: Yes (3) PROM (premature rupture of membranes) Is this a current diagnosis for this admission?: Yes (4) 34 weeks gestation of Is this a current diagnosis for this admission?: Yes (5) Is this a current diagnosis for this admission?: Yes - Additional Information Resuscitation Status: Full Code Discharge Diet: As Tolerated Discharge Activity: Activity As Tolerated, No Lifting Over 10 Pounds, No Lifting/Push/Pulling, Non-Ambulatory Child, No tub bath Referrals: DOLLY MORALES MD [Primary Care Provider] - Prescriptions: Oxycodone HCl/Acetaminophen [Percocet 5-325 mg Tablet] 1 tab PO Q4HP PRN #20 tablet PRN Reason: Ibuprofen [Motrin 800 mg Tablet] 800 mg PO Q6 #60 tablet Labetalol HCl [Normodyne 200 mg Tablet] 200 mg PO Q12 #60 tablet Home Medications: Prenat 115/Iron Fum/Folic/Dss [ 19 Tablet] 1 tab PO DAILY 03/11/14 Ferrous Sulfate [Feosol 325 mg Tablet] 325 mg PO DAILY #60 tab 04/03/14 Ibuprofen [Motrin 800 mg Tablet] 800 mg PO Q6 #60 tablet 11/21/19 Labetalol HCl [Normodyne 200 mg Tablet] 200 mg PO Q12 #60 tablet 11/21/19 Oxycodone HCl/Acetaminophen [Percocet 5-325 mg Tablet] 1 tab PO Q4HP PRN #20 tablet 11/21/19 HPI Gestational Age: 34.5 Reason(s) for Admission: PROM, PIH, Twins Procedures: NST, Ultrasound Intrapartum Procedure(s): : Low Cervical, Transverse - home today Hospital Course Hospital Course: routine post op, baby to [facility] for surgery other twin here at [facility] 59. Maternal Morbidity (serious complications experinced by the mother associated with labor and delivery: None of the above Results Laboratory Results: WBC 11.4 10^3/uL (4.0-10.5) H 11/21/19 04:49 RBC 3.83 10^6/uL (3.72-5.28) 11/21/19 04:49 Hgb 9.7 g/dL (12.0-15.5) L 11/21/19 04:49 Hct 30.0 % (36.0-47.0) L 11/21/19 04:49 MCV 78 fl (80-97) L 11/21/19 04:49 MCH 25.2 pg (27.0-33.4) L 11/21/19 04:49 MCHC 32.2 g/dL (32.0-36.0) 11/21/19 04:49 RDW 38.8 % (11.5-14.0) H 11/21/19 04:49 Plt Count 115 10^3/uL (150-450) L 11/21/19 04:49 Lymph % (Auto) 10.9 % (13-45) L 11/20/19 04:30 [place] % (Auto) 7.7 % (3-13) 11/20/19 04:30 Eos % (Auto) 0.1 % (0-6) 11/20/19 04:30 Baso % (Auto) 0.2 % (0-2) 11/20/19 04:30 Absolute Neuts (auto) 9.7 10^3/uL (1.7-8.2) H 11/20/19 04:30 Absolute Lymphs (auto) 1.3 10^3/uL (0.5-4.7) 11/20/19 04:30 Absolute Monos (auto) 0.9 10^3/uL (0.1-1.4) 11/20/19 04:30 Absolute Eos (auto) 0.0 10^3/uL (0.0-0.6) 11/20/19 04:30 Absolute Basos (auto) 0.0 10^3/uL (0.0-0.2) 11/20/19 04:30 Seg Neutrophils % 81.1 % (42-78) H 11/20/19 04:30 Toxic Granulation 1+ 11/20/19 04:30 Clumped Platelets PRESENT 11/18/19 10:40 Platelet Comment DECREASED 11/20/19 04:30 Polychromasia SLIGHT 11/20/19 04:30 Hypochromasia SLIGHT 11/20/19 04:30 Poikilocytosis SLIGHT 11/20/19 04:30 Anisocytosis 4+ 11/20/19 04:30 Microcytosis SLIGHT 11/20/19 04:30 Tear Drop Cells SLIGHT 11/20/19 04:30 Ovalocytes SLIGHT 11/20/19 04:30 [place] Cells SLIGHT 11/18/19 10:40 Schistocytes 2+ 11/18/19 02:57 Sodium 130.8 mmol/L (137-145) L 11/18/19 22:08 Potassium 4.1 mmol/L (3.6-5.0) 11/18/19 22:08 Chloride 103 mmol/L (98-107) 11/18/19 22:08 Carbon Dioxide 19 mmol/L (22-30) L 11/18/19 22:08 Anion Gap 9 (5-19) 11/18/19 22:08 BUN 6 mg/dL (7-20) L 11/18/19 22:08 Creatinine 0.45 mg/dL (0.52-1.25) L 11/18/19 22:08 Est GFR ( Amer) > 60 (>60) 11/18/19 22:08 Est GFR (MDRD) Non-Af > 60 (>60) 11/18/19 22:08 Glucose 121 mg/dL (75-110) H 11/18/19 22:08 Uric Acid 5.1 mg/dL (2.5-6.2) 11/18/19 10:40 Calcium 7.9 mg/dL (8.4-10.2) L 11/18/19 22:08 Total Bilirubin 0.5 mg/dL (0.2-1.3) 11/18/19 22:08 Direct Bilirubin 0.0 mg/dL (0.0-0.4) 11/18/19 22:08 Neonat Total Bilirubin Not Reportable 11/18/19 22:08 Neonat Direct Bilirubin Not Reportable 11/18/19 22:08 Neonat Indirect Bili Not Reportable 11/18/19 22:08 AST 46 U/L (14-36) H 11/18/19 22:08 ALT 59 U/L (<35) H 11/18/19 22:08 Alkaline Phosphatase 163 U/L (38-126) H 11/18/19 22:08 Total Protein 6.0 g/dL (6.3-8.2) L 11/18/19 22:08 Albumin 3.3 g/dL (3.5-5.0) L 11/18/19 22:08 Urine Color PINK 11/18/19 02:45 Urine Appearance CLOUDY 11/18/19 02:45 Urine pH 8.0 (5.0-9.0) 11/18/19 02:45 Ur Specific [place] 1.009 11/18/19 02:45 Urine Protein 100 mg/dL (NEGATIVE) H 11/18/19 02:45 Urine Glucose (UA) NEGATIVE mg/dL (NEGATIVE) 11/18/19 02:45 Urine Ketones NEGATIVE mg/dL (NEGATIVE) 11/18/19 02:45 Urine Blood LARGE (NEGATIVE) H 11/18/19 02:45 Urine Nitrite NEGATIVE (NEGATIVE) 11/18/19 02:45 Urine Bilirubin NEGATIVE (NEGATIVE) 11/18/19 02:45 Urine Urobilinogen NEGATIVE mg/dL (<2.0) 11/18/19 02:45 Ur Leukocyte Esterase SMALL (NEGATIVE) H 11/18/19 02:45 Urine WBC (Auto) 38 /HPF 11/18/19 02:45 Urine RBC (Auto) >182 /HPF 11/18/19 02:45 Squamous Epi Cells Auto 15 /HPF 11/18/19 02:45 Urine Mucus (Auto) RARE /LPF 11/18/19 02:45 Urine Creatinine 15.4 mg/dL (16-327) L 11/18/19 02:45 Protein/Creatinin Ratio 21.0 mg/mg (0.0-0.2) H 11/18/19 02:45 Urine Total Protein 323.2 mg/dL (<12) H 11/18/19 02:45 Urine Ascorbic Acid NEGATIVE (NEGATIVE) 11/18/19 02:45 Urine Opiates Screen NEGATIVE 11/18/19 02:45 Urine Methadone Screen NEGATIVE 11/18/19 02:45 Ur Barbiturates Screen NEGATIVE 11/18/19 02:45 Ur Phencyclidine Scrn NEGATIVE 11/18/19 02:45 Ur Amphetamines Screen NEGATIVE 11/18/19 02:45 U Benzodiazepines Scrn NEGATIVE 11/18/19 02:45 Urine Cocaine Screen NEGATIVE 11/18/19 02:45 U Marijuana (THC) Screen NEGATIVE 11/18/19 02:45 RPR NONREACTIVE (NONREACTIVE) 11/18/19 02:57 Chlamydia DNA (PCR) NOT DETECTED (NOT DETECT) 11/19/19 09:45 N.gonorrhoeae DNA (PCR) NOT DETECTED (NOT DETECT) 11/19/19 09:45 Blood Type O POSITIVE 11/18/19 02:57 Antibody Screen NEGATIVE 11/18/19 02:57 Plan Health Concerns: post op pain, infection Plan of Treatment: discharge home, pain meds, rev S&S to report Goals: no complicayions, twin at [facility] comes home Time Spent: Less than 30 Minutes
[2019-11-22 09:40] VITALS: BP 133/81
[2019-11-22] MEDS: DOCUSATE SODIUM 100 MG CAPSULE PO SCH (11:09)
[2019-11-22] MEDS: LABETALOL HCL 200 MG TABLET PO SCH (11:09)
[2019-11-22] MEDS: PRENATAL VITAMIN W DHA CAPSULE PO SCH (11:10)
[2019-11-22] MEDS: FERROUS SULFATE 325 MG TABLET PO SCH (11:10)
== END 2019-11-22 11:55 | disposition home or self-care (01) | DRG 788 ==
LOC: LC 02:25 → LR 02:38 → 2S 11-20 09:00
PROVIDERS: ADMIT Obstetrics & Gynecology Gynecology; ATTEND Obstetrics & Gynecology Gynecology
PROC: 10D00Z1 Extraction of Products of Conception, Low, Open Approach (ICD-10-PCS; principal; 2019-11-20)
DX: O42.013 Preterm premature rupture of membranes, onset of labor within 24 hours of rupture, third trimester (principal); O30.043 Twin pregnancy, dichorionic/diamniotic, third trimester; O32.1XX1 Maternal care for breech presentation, fetus 1; O76 Abnormality in fetal heart rate and rhythm complicating labor and delivery; O34.211 Maternal care for low transverse scar from previous cesarean delivery; O13.4 Gestational [pregnancy-induced] hypertension without significant proteinuria, complicating childbirth; N85.8 Other specified noninflammatory disorders of uterus; Z3A.34 34 weeks gestation of pregnancy; Z37.2 Twins, both liveborn
CPT/HCPCS: 1961; 36415; 80053; 80307; 81001; 82570; 84156; 84550; 85025; 85027; 86592; 86850; 86900; 86901; 87070; 87081; 87491; 87591; 93005; 93010; 94760; 94799; 99140; C1758; J0131; J0690; J0702; J1885; J2175; J2210; J2250; J2270; J2370; J2405; J2540; J2590; J3010; J3475; J3490; J7060